=== PATIENT | female | born 1970 | race Caucasian/White ===

== ENCOUNTER 2017-07-16 13:04 | Emergency (ER) | payer MEDICAID ==
[~2017-07-16] VITALS: Ht 165.1 cm; Wt 100.0 kg
[2017-07-16 13:35] VITALS: BP 181/105; PULSE 82; TEMP 97.1
[2017-07-16] MEDS ORDERED: PRINZIDE 25 MG-1 TAB PO (13:54)
[2017-07-16] MEDS ORDERED: PROAIR HFA0.09 MG/AC INH (13:55)
[2017-07-16] MEDS ORDERED: RT ALBUTER2.5 MG/0.5 INH (13:55)
[2017-07-16] MEDS ORDERED: DAZIDOX20 MG PO (13:56)
[2017-07-16 14:52] LABS: BASO # 0.1 (0.0-0.2); BASO % 0.6 % (0.0-2.0); EOS # 0.4 (0.0-0.7); GRAN # 4.3 (1.4-6.5); GRAN % 44.2 % (42.2-75.2); HEMOGLOBIN 17.6 g/dl (12.5-16.0); LYMPH # 4.1 (1.2-3.4); LYMPH % 42.2 % (20.0-51.0); MEAN CELL VOLUME 87 fl (80.0-100.0); MEAN CORPUSCULAR HEMOGLOBIN 29 pg (27.0-31.0); MEAN CORPUSCULAR HGB CONC 33 g/dl (33.0-37.0); MONO # 0.8 (0.1-0.6); MONO % 8.5 % (1.7-9.3); PLATELET COUNT 305 K/mm3 (130-400); RED BLOOD COUNT 6.05 M/mm3 (4.10-5.30); REDCELL DISTRIBUTION WIDTH-CV 14.5 % (11.5-14.5)
[2017-07-16 14:53] LABS: HEMATOCRIT 52.7 % (37.0-47.0)
[2017-07-16 14:58] LABS: ALANINE AMINOTRANSFERASE 32 U/L (9-52); ALBUMIN 3.3 gm/dL (3.5-5.0); ALKALINE PHOSPHATASE 83 U/L (50-136); ANION GAP 8 mmol/L (7-16); AST,SGOT 54 U/L (15-37); BILIRUBIN,TOTAL 0.3 mg/dL (0.0-1.0); BLOOD UREA NITROGEN 4 mg/dL (7-17); CALCIUM 9.4 mg/dL (8.4-10.2); CARBON DIOXIDE 35 mmol/L (22-30); CHLORIDE 98 mmol/L (98-107); CREATININE, serum 0.53 mg/dL (0.52-1.25); GLUCOSE 94 mg/dL (74-106); POTASSIUM 3.9 mmol/L (3.4-5.0); SODIUM 140 mmol/L (137-145); TOTAL PROTEIN 7.2 gm/dL (6.4-8.2)
[2017-07-16 14:59] LABS: COLLECTION METHOD CLEAN CATCH
[2017-07-16 15:04] LABS: PH 7 (5-8); SQUAMOUS EPITHELIAL 0-2 /hpf; URINE APPEARANCE Clear; URINE BACTERIA None Seen /hpf; URINE BILIRUBIN Negative (NEGATIVE); URINE BLOOD Negative (NEGATIVE); URINE COLOR Yellow; URINE GLUCOSE Negative (NEGATIVE); URINE KETONE Negative (NEGATIVE); URINE LEUKOCYTE ESTERASE Negative (NEGATIVE); URINE NITRATE Negative (NEGATIVE); URINE PROTEIN(semi-quant) 3+ (NEGATIVE); URINE RBC 0-2 /hpf; URINE UROBILINOGEN Negative (NEGATIVE)
[2017-07-16 15:11] LABS: TROPONIN-I < 0.012 ng/mL (0.000-0.034)
== END 2017-07-16 14:58 | disposition left against medical advice (07) ==
LOC: COL.ER 13:04
PROVIDERS: Emergency Medicine
DX: R06.02 Shortness of breath (principal)

== ENCOUNTER 2017-09-04 04:17 | Emergency (ER) | payer MEDICAID ==
[~2017-09-04] VITALS: Ht 165.1 cm; Wt 102.3 kg
[~2017-09-04 04:17] MED LIST: DAZIDOX20 MG PO; PRINZIDE 25 MG-1 TAB PO; PROAIR HFA0.09 MG/AC INH; RT ALBUTER2.5 MG/0.5 INH
[2017-09-04 04:19] VITALS: BP 177/96; PULSE 100; TEMP 98
[2017-09-04] MEDS ORDERED: INDOCIN50 MG PO (04:43)
[2017-09-04] MEDS ORDERED: ZYLOPRIM 300MG300 MG PO (04:43)
== END 2017-09-04 05:15 | disposition home or self-care (01) ==
LOC: COL.ER 04:17
DX: M10.9 Gout, unspecified (principal); I10 Essential (primary) hypertension; J45.909 Unspecified asthma, uncomplicated

== ENCOUNTER 2018-01-10 20:02 | Emergency (ER) | payer MEDICAID ==
[~2018-01-10] VITALS: Ht 165.1 cm; Wt 102.3 kg
[~2018-01-10 20:02] MED LIST changes: +INDOCIN50 MG PO; +ZYLOPRIM 300MG300 MG PO
[2018-01-10 20:07] VITALS: TEMP 98
[2018-01-10] MEDS ORDERED: ZYLOPRIM 300MG300 MG PO (21:18)
[2018-01-10 21:30] VITALS: BP 131/86; PULSE 81
== END 2018-01-10 21:30 | disposition home or self-care (01) ==
LOC: COL.ER 20:02
DX: M10.9 Gout, unspecified (principal); I10 Essential (primary) hypertension; M54.9 Dorsalgia, unspecified; G89.29 Other chronic pain; F17.210 Nicotine dependence, cigarettes, uncomplicated; Z79.891 Long term (current) use of opiate analgesic